=== PATIENT | male | born 1965 | race African-American/Black ===

== ENCOUNTER 2022-09-19 11:22 | Emergency (ER) | payer MEDICAID, OTHER ==
[~2022-09-19] VITALS: Ht 162.6 cm; Wt 75.9 kg
[2022-09-19 12:22] VITALS: BP 123/87
[2022-09-19] MEDS ORDERED: MINERAL OIL 133 ML ENEMA PR ONE (13:15)
[2022-09-19] MEDS ORDERED: POLY17PO47 PO (13:42)
== END 2022-09-19 13:42 | disposition home or self-care (01) ==
LOC: EMS 11:29
DX: K59.00 Constipation, unspecified (principal); F20.9 Schizophrenia, unspecified; F17.210 Nicotine dependence, cigarettes, uncomplicated; Z88.5 Allergy status to narcotic agent
CPT/HCPCS: 99282; Z7502; Z7610

== ENCOUNTER 2025-03-02 11:52 | Emergency (ER) | payer OTHER ==
[~2025-03-02] VITALS: Ht 162.6 cm; Wt 79.1 kg
[~2025-03-02 11:52] MED LIST: POLY17PO47 PO
[2025-03-02 12:02] VITALS: TEMP 98.2
[2025-03-02] MEDS ORDERED: MELA10TA2 PO (12:02)
[2025-03-02] MEDS ORDERED: DIAZ5TAB4 PO (12:02)
[2025-03-02] MEDS ORDERED: RISP3TAB35 PO (12:02)
[2025-03-02 12:26] LABS: BASOPHILS % (AUTO) 0.7 % (0.0-2.0); EOSINOPHILS % (AUTO) 0.5 % (1.0-6.0); HEMATOCRIT 47.6 % (41-53); HEMOGLOBIN 15.6 g/dL (13.5-17.5); MEAN CORPUSCULAR HEMOGLOBIN 27.6 pg (26.0-34.0); MEAN CORPUSCULAR HGB CONC 32.8 G/dL (31.0-37.0); MEAN CORPUSCULAR VOLUME 84 fL (80-100); MONOCYTES # (AUTO) 0.8 K/uL (0.1-1.0); MONOCYTES % (AUTO) 8.5 % (2.0-9.0); NEUTROPHILS # (AUTO) 6.7 K/uL (1.8-7.7); NEUTROPHILS % (AUTO) 69.3 % (40.0-70.0); PLATELET COUNT (AUTO) 243 K/uL (150-450); RED BLOOD CELL COUNT(AUTO) 5.67 MIL/uL (4.50-5.90); RED CELL DISTRIBUTION WIDTH 14.5 % (11.5-14.5); WHITE BLOOD COUNT (AUTO) 9.6 K/uL (4.5-11.0)
[2025-03-02 12:36] LABS: ANION GAP 8 mmol/L (8-16); CALCIUM, TOTAL 9.7 mg/dL (8.8-10.5); CARBON DIOXIDE 27 mmol/L (22-29); CHLORIDE 101 mmol/L (98-107); CREATININE 1.09 mg/dL (0.60-1.30); GLOMERULAR FILTR. RATE CALC > 60 mL/min (>60); GLUCOSE,RANDOM 91 mg/dL (70-110); POTASSIUM 4.2 mmol/L (3.5-5.1); SODIUM SERUM 136 mmol/L (136-145); UREA NITROGEN, BLOOD 9 mg/dL (7-18)
[2025-03-02 12:46] LABS: TROPONIN I-HIGH SENSITIVITY 5 ng/L (<76)
[2025-03-02 13:07] VITALS: BP 128/81; PULSE 91; RESP 19; O2SAT 99
== END 2025-03-02 13:08 | disposition home or self-care (01) ==
LOC: EMS 12:01
DX: R07.9 Chest pain, unspecified (principal); E78.5 Hyperlipidemia, unspecified; F20.9 Schizophrenia, unspecified; F17.210 Nicotine dependence, cigarettes, uncomplicated; Z88.8 Allergy status to other drugs, medicaments and biological substances; Z79.899 Other long term (current) drug therapy
CPT/HCPCS: 71045; 80048; 84484; 85025; 93005; 99285; 36415-L1; 36415-TC

== ENCOUNTER 2025-11-01 13:41 | Emergency (ER) | payer OTHER ==
[~2025-11-01] VITALS: Ht 162.6 cm; Wt 73.0 kg
[~2025-11-01 13:41] MED LIST changes: +DIAZ5TAB4 PO; +MELA10TA37 PO; +RISP3TAB35 PO
[2025-11-01 13:50] VITALS: BP 100/77; PULSE 92; RESP 18; TEMP 98.4; O2SAT 99
[2025-11-01] MEDS ORDERED: AMLO-257 PO ×2 (13:52→14:14)
== END 2025-11-01 14:24 | disposition home or self-care (01) ==
LOC: EMS 13:41
DX: I10 Essential (primary) hypertension (principal); E78.00 Pure hypercholesterolemia, unspecified; F20.9 Schizophrenia, unspecified; F17.210 Nicotine dependence, cigarettes, uncomplicated; Z79.899 Other long term (current) drug therapy; Z76.0 Encounter for issue of repeat prescription
CPT/HCPCS: 99282; Z7502